=== PATIENT | male | born 1930 | race Caucasian/White ===

== ENCOUNTER 2017-07-29 09:15 | Day surgery (SDC) | payer MEDICARE, BC ==
[~2017-07-29] VITALS: Ht 165.1 cm; Wt 79.4 kg
[2017-07-29] MEDS ORDERED: SODIUM BICARBONATE 4% (2.4MEQ) 5ML VIAL IV ONE (09:50)
[2017-07-29] MEDS ORDERED: LIDOCAINE HCL 1% 20ML VIAL (Pyxis) INJ ONE (09:50)
== END 2017-07-29 13:30 | disposition home or self-care (01) ==
LOC: RAD 09:15 → EEVIPCON 10:00 → RAD 13:30
PROVIDERS: ATTEND Internal Medicine Critical Care Medicine
DX: J90 Pleural effusion, not elsewhere classified (principal); N18.9 Chronic kidney disease, unspecified
CPT/HCPCS: 32555; 71045; 76700; 82040; 82150; 82465; 82945; 83615; 84157; 84478; 87070; 87205; 88108; 88312; 89050; 93005; J3490

== ENCOUNTER 2017-08-31 11:01 | Day surgery (SDC) | payer MEDICARE, BC ==
[~2017-08-31] VITALS: Ht 177.8 cm; Wt 81.6 kg
[2017-08-31 11:15] LABS: BASOPHILS % 0.8 % (0.0-2.0); EOSINOPHILS % 2.6 % (0.0-5.0); HEMATOCRIT. 42.3 % (42.0-52.0); HEMOGLOBIN. 14.1 g/dL (14.0-18.0); LYMPHOCYTES % 24.8 % (20.0-50.0); MEAN CORPUSCULAR HEMOGLOBIN 31.2 pg (28.0-32.0); MEAN CORPUSCULAR VOLUME 93.4 fL (80.0-94.0); MEAN PLATELET VOLUME 9.2 fl (7.4-10.4); MONOCYTES % 9.6 % (2.0-8.0); NEUTROPHILS % 62.2 % (40.0-76.0); PLATELET 140 x1000/uL (130-400); RED BLOOD CELL COUNT 4.53 mill/uL (4.7-6.1); RED CELL DISTRIBUTION WIDTH 12.9 % (11.6-14.6)
[2017-08-31 11:23] LABS: INR 1.1; PARTIAL THROMBOPLASTIN TIME 25.7 sec (23.4-31.0); PROTHROMBIN TIME 11.5 sec (9.4-11.6)
[2017-08-31] MEDS ORDERED: FINA5TAB11 PO (11:59)
[2017-08-31] MEDS ORDERED: PITA2TAB2 PO (11:59)
[2017-08-31] MEDS ORDERED: FURO20TA4 PO (11:59)
[2017-08-31] MEDS ORDERED: ASPI-1159 PO (11:59)
[2017-08-31] MEDS ORDERED: CHOL500010 PO (11:59)
[2017-08-31] MEDS ORDERED: LIDOCAINE HCL/PF 1% 10 MG/ML 5ML VIAL ONE (12:10)
[2017-08-31] MEDS ORDERED: IODIXANOL 320MG/ML 100 ML BOTTLE IV ONE (12:27)
[2017-08-31] MEDS ORDERED: MIDAZOLAM HCL 2 MG/2 ML VIAL ONE (12:36)
[2017-08-31] MEDS ORDERED: FENTANYL CITRATE/PF 50MCG/ML 2ML VIAL ONE (12:37)
[2017-08-31] MEDS ORDERED: SODIUM CHLORIDE 0.9% 250 ML IV ONE (13:45)
[2017-08-31] MEDS ORDERED: NICARDIPINE 100MCG/ML 10ML VIAL (CATH LAB) IV ONE (15:33)
[2017-08-31] MEDS ORDERED: HEPARIN SODIUM 1,000 UNIT/1ML VIAL IV ONE (15:33)
[2017-08-31] MEDS ORDERED: NITROGLYCERIN 50MCG/ML 10ML VIAL (CATH LAB) IV ONE (15:33)
[2017-08-31] MEDS ORDERED: ACETYLCYSTEINE 200MG/ML 20% VIAL 4ML PO SCH (21:00)
== END 2017-08-31 16:00 | disposition home or self-care (01) ==
LOC: CCL 11:01
PROVIDERS: ATTEND Specialist
DX: I25.10 Atherosclerotic heart disease of native coronary artery without angina pectoris (principal); I13.0 Hypertensive heart and chronic kidney disease with heart failure and stage 1 through stage 4 chronic kidney disease, or unspecified chronic kidney disease; N18.9 Chronic kidney disease, unspecified; I50.30 Unspecified diastolic (congestive) heart failure
CPT/HCPCS: 36415; 80048; 85025; 85610; 85730; 93458; 99152; C1769; C1887; C1893; J1644; J2250; J3010; J3490; Q9967

== ENCOUNTER 2019-12-17 08:38 | Day surgery (SDC) | payer MEDICARE, BC ==
[~2019-12-17 08:38] MED LIST: ASPI-1497 PO; CHOL500010 PO; FINA5TAB11 PO; FURO20TA4 PO; PITA2TAB2 PO
[2019-12-17] MEDS ORDERED: SODIUM BICARBONATE 4% (2.4MEQ) 5ML VIAL IV ONE (09:04)
[2019-12-17] MEDS ORDERED: HYDRALAZINE 20MG/ML VIAL IV PRN (11:00)
== END 2019-12-17 12:05 | disposition home or self-care (01) ==
LOC: RAD 08:38
PROVIDERS: ATTEND Internal Medicine Critical Care Medicine
DX: J90 Pleural effusion, not elsewhere classified (principal); I13.0 Hypertensive heart and chronic kidney disease with heart failure and stage 1 through stage 4 chronic kidney disease, or unspecified chronic kidney disease; I50.9 Heart failure, unspecified; N18.9 Chronic kidney disease, unspecified; I25.10 Atherosclerotic heart disease of native coronary artery without angina pectoris; Z95.5 Presence of coronary angioplasty implant and graft; Z98.890 Other specified postprocedural states; Z79.899 Other long term (current) drug therapy; Z79.82 Long term (current) use of aspirin
CPT/HCPCS: 32555; 71045; 82040; 82150; 82945; 83615; 84478; 87070; 87116; 87205; 88108; 88312; 89050; J3490

== ENCOUNTER 2020-08-07 08:42 | Day surgery (SDC) | payer MEDICARE, BC ==
[2020-08-07] MEDS ORDERED: SODIUM BICARBONATE 4% (2.4MEQ) 5ML VIAL IV ONE (09:10)
== END 2020-08-07 14:10 | disposition home or self-care (01) ==
LOC: RAD 08:42
PROVIDERS: ATTEND Specialist
DX: J90 Pleural effusion, not elsewhere classified (principal); I13.0 Hypertensive heart and chronic kidney disease with heart failure and stage 1 through stage 4 chronic kidney disease, or unspecified chronic kidney disease; I50.9 Heart failure, unspecified; E78.5 Hyperlipidemia, unspecified; I25.10 Atherosclerotic heart disease of native coronary artery without angina pectoris; N18.9 Chronic kidney disease, unspecified; Z79.82 Long term (current) use of aspirin; Z79.899 Other long term (current) drug therapy
CPT/HCPCS: 32555; 71045; 93005; J3490